=== PATIENT | male | born 1945 | race Caucasian/White ===

== ENCOUNTER 2019-04-07 16:54 | Emergency (ER) | payer OTHER, MEDICARE ==
[2019-04-07] MEDS: RIVAROXABAN 20 MG TABLET PO (18:36)
== END 2019-04-07 19:07 | disposition home or self-care (01) ==
LOC: E/R 16:54
DX: I82.433 Acute embolism and thrombosis of popliteal vein, bilateral (principal); I10 Essential (primary) hypertension; Z85.46 Personal history of malignant neoplasm of prostate
CPT/HCPCS: 93971; 99284-25